=== PATIENT | female | born 1975 | race Caucasian/White ===

== ENCOUNTER 2016-10-14 20:12 | Emergency (ER) | payer MEDICAID ==
[~2016-10-14] VITALS: Ht 160 cm; Wt 78.2 kg
[~2016-10-14 20:12] MED LIST: PREN-43 PO; PREN1TAB17 PO; PREN1TAB62 PO
[2016-10-14 20:18] VITALS: Ht 160 cm; Wt 78.2 kg
[2016-10-14] MEDS ORDERED: ACET500C5 PO (20:48)
--- NOTE | 2016-10-14 20:56 | ERD ---
ER Documentation Chief Complaint Date/Time DATE: 10/14/16 TIME: 20:53 Chief Complaint cough x 4 days HPI 41-year-old female with no significant past medical history presents the ED complaining of a cough for 1 week. Reports that she has tactile fevers at home but denies taking her temperature. States that she has been taking a cough medication called Tuko and has been taking Tylenol for the reported fevers. Denies any abdominal pain, nausea, vomiting, diarrhea, rashes, chest pain, pleuritic chest pain, dyspnea on exertion. Patient reports that her son is also sick with similar symptoms. Denies any recent traveling. Denies any leg swelling. ROS All systems reviewed and are negative except as per history of present illness. Medications Home Meds Active Scripts Acetaminophen* (Tylophen*) 500 Mg Capsule, 1 CAP PO Q6H Y for PAIN AND OR ELEVATED TEMP, #20 CAP Prov:GERRY ALFARO PA-C 10/14/16 Reported Medications Vit-Iron Fumarate-FA ( Tablet) 1 Each Tablet, 1 TAB PO AM, TAB 07/15/14 Vit-Iron Fumarate-FA ( Vitamin Tablet) 1 Each Tablet, 1 TAB PO AM, TAB 07/01/14 #48/Iron Cb&Glu/Fa/B6 (CITRANATAL B-CALM COMBO PACK) 1 Each Tablet.seq , 1 EACH PO DAILY 01/13/14 Allergies Allergies: Coded Allergies: No Known Allergy (Unverified , 07/15/14) PMhx/Soc Anesthesia Reaction: No Hx Neurological Disorder: No Hx Respiratory Disorders: No Hx Cardiac Disorders: No Hx Psychiatric Problems: No Hx Miscellaneous Medical Probl: No Hx Alcohol Use: No Hx Substance Use: No Hx Tobacco Use: No Physical Exam Vitals Vital Signs Date Time Temp Pulse Resp B/P Pulse Ox O2 Delivery O2 Flow Rate FiO2 10/14/16 20:18 97.7 63 20 130/94 98 Physical Exam Const: Rni-dzt-tgnotlbqv, well-nourished. In no acute distress. Head: Atraumatic, normocephalic Eyes: Normal Conjunctiva without injection. No purulent discharge. PERRL. EOMI ENT: Normal external ear. Ear canal without erythema. Tympanic membrane pearly ramirez without effusion or bulging. Nasal canal clear with normal turbinates. Moist oropharynx without tonsillar exudates. Non-erythematous pharynx. Uvula midline. No drooling. No trismus. Neck: Full range of motion. No meningismus. No cervical lymphadenopathy. Resp: Clear to auscultation bilaterally. No wheezing, rhonchi, rales, or crackles. No accessory muscle use. No retractions. Cardio: Regular rate and rhythm. No murmurs, rubs or gallops. Abd: Soft, non tender, non distended. Normal bowel sounds. No palpable masses. No rebound tenderness. No guarding. Skin: No petechiae or rashes Back: No midline tenderness. No CVA tenderness. Ext: No cyanosis, or edema. Neur: Awake and alert. Psych: Normal Mood and Affect Procedures/MDM This is a 41-year-old female with no significant past medical history presents the ED complaining of a cough that started 1 week ago. Patient is afebrile and nontoxic-appearing. Patient has normal vital signs. This patient presents to the ED with symptoms consistent with bronchitis. Patient is appropriate for outpatient management. Patient is afebrile and has normal vital signs. Patient 's physical exam include lungs which were clear to auscultation and a normal pulse oximetry. There is a low suspicion for pneumonia, pneumothorax, pulmonary embolism, epiglottitis, otitis media, otitis externa, viral/strep pharyngitis, sinusitis, peritonsillar abscess, mastoiditis, retropharyngeal abscess, meningitis, sepsis, acute abdomen or other emergent conditions. Fluids, rest, and symptomatic treatment are recommended for the management of patient's symptoms. Discharge medications: Tylenol Patient was instructed to return to the ED for any new or worsening symptoms. They should otherwise follow up with the primary care provider within 1-2 days. The patient's questions were answered at the time of discharge. Patient understood and agreed with discharge management. Departure Diagnosis: Primary Impression: Cough Condition: Stable Patient Instructions: Bronchitis, Antiobiotic Treatment (Adult) [facility] Usted se glez hecho un examen mdico de control que le indica que no est en juni condicin que requiera tratamiento urgente en el Departamento de Emergencia. Un estudio ms profundo y el tratamiento de quezada condicin pueden esperar sin ningn riesgo hasta que usted sea atendida/o en el consultorio de quezada mdico o juni cl omar. Es responsabilidad suya arreglar juni beto para el seguimiento del bari. MANEJO DE CONDICIONES NO URGENTES EN EL FUTURO 1) Si usted tiene un mdico de atencin primaria: Usted debera llamar a quezada mdico de atencin primaria antes de venir al departamento de emergencia. Despus de las horas de consultorio, quezada doctor o quezada asociado/a est disponible por telfono. El mdico o enfermero de naomi en el servicio telefnico puede asesorarle por angie medio para atender el problema, o bari contrario se puede programar juni beto. 2) Si usted no tiene un mdico de atencin primaria: Llame al mdico o clnica de referencia que aparece abajo arnold las horas de consultorio para hacer juni beto para que le vean. CLINICAS: [facility] [phone] [address] [facility]., [facility] [phone] [address] [facility]. [facility] [phone] 2[address] [facility]. [place] [id number] [phone] [facility]. [place] [address] [phone] [facility]. [phone] [facility]. [facility] () Usted se glez hecho un examen mdico de control que le indica que no est en juni condicin que requiera tratamiento urgente en el Departamento de Emergencia. Un estudio ms profundo y el tratamiento de quezada condicin pueden esperar sin ningn riesgo hasta que usted sea atendida/o en el consultorio de quezada mdico o juni cl omar. Es responsabilidad suya arreglar juni beto para el seguimiento del bari. MANEJO DE CONDICIONES NO URGENTES EN EL FUTURO 1) Si usted tiene un mdico de atencin primaria: Usted debera llamar a quezada mdico de atencin primaria antes de venir al departamento de emergencia. Despus de las horas de consultorio, quezada doctor o quezada asociado/a est disponible por telfono. El mdico o enfermero de naomi en el servicio telefnico puede asesorarle por angie medio para atender el problema, o bari contrario se puede programar juni beto. 2) Si usted no tiene un mdico de atencin primaria: Llame al mdico o condado institucions de referencia que aparece abajo arnold las horas de consultorio para hacer juni beto para que le vean. SI USTED NO PUEDE PAGAR PARA PROSPER UN MEDICO puede ir a: [facility] [address] [place], [place] [id number] [place] [address] [address] [place] [address] [facility] [address] [place] [address] [facility] [address] [place], [place] [id number] Additional Instructions: Visite a quezada mdico maana para un EXAMEN.Regrese a estas instalaciones si no se mejora chasity esperbamos o chasity le dijimos. GERRY ALFARO PA-C Oct 14, 2016 20:56
[2016-10-14] MEDS ORDERED: GUAI-637 PO (21:03)
[2016-10-14] MEDS ORDERED: AZIT250T94 PO (21:03)
== END 2016-10-14 20:48 | disposition home or self-care (01) ==
LOC: E/R 20:12
DX: R05 Cough (principal)
CPT/HCPCS: 99283

== ENCOUNTER 2018-08-26 20:25 | Emergency (ER) | payer MEDICAID ==
[~2018-08-26] VITALS: Ht 160 cm; Wt 83.0 kg
[~2018-08-26 20:25] MED LIST changes: +ACET500C5 PO; +AZIT250T PO; +GUAI-637 PO
[2018-08-26 21:02] VITALS: BP 125/79; PULSE 80; RESP 18; Ht 160 cm; Wt 83.0 kg
[2018-08-26] MEDS ORDERED: D-ME118S24 PO (23:06)
[2018-08-26] MEDS ORDERED: AMOX500T PO (23:06)
--- NOTE | 2018-08-27 03:26 | ERD ---
ER Documentation Chief Complaint Chief Complaint flu-liked symptoms (cough&congestion) x 2weeks ROS All systems reviewed and are negative except as per history of present illness. Medications Home Meds Active Scripts D-Methorphan Hb/P-Epd HCl/Bpm (Dzhmkcyxta-Zgtxpgssequ-Yv Syr) 118 Ml Syrup, 5 ML PO Q4H for cough, #1 BOTTLE Prov:SHELLEY DAVIDSON DO 08/26/18 Amoxicillin Trihydrate (Amoxicillin) 500 Mg Tablet, 500 MG PO Q8 for sinusitis for 7 Days, #21 TAB Prov:SHELLEY DAVIDSON DO 08/26/18 Guaifenesin (Guaifenesin) 100 Mg/5 Ml Liquid, 200 MG PO Q6H PRN for COUGH, #120 ML Prov:GERRY ALFARO PA-C 10/14/16 Azithromycin* (Zithromax*) 250 Mg Tablet, 250 MG PO .ZPACK DIRECTED, #6 TAB TAKE 500 MG (2 TABS) THE FIRST DAY THEN 250 MG (1 TAB) DAYS 2-5 Prov:GERRY ALFARO PA-C 10/14/16 Acetaminophen* (Tylophen*) 500 Mg Capsule, 1 CAP PO Q6H PRN for PAIN AND OR ELEVATED TEMP, #20 CAP Prov:GERRY ALFARO PA-C 10/14/16 Reported Medications Vit-Iron Fumarate-FA ( Tablet) 1 Each Tablet, 1 TAB PO AM, TAB 07/15/14 Vit-Iron Fumarate-FA ( Vitamin Tablet) 1 Each Tablet, 1 TAB PO AM, TAB 07/01/14 #48/Iron Cb&Glu/Fa/B6 (CITRANATAL B-CALM COMBO PACK) 1 Each Tablet.seq, 1 EACH PO DAILY 01/13/14 Allergies Allergies: Coded Allergies: No Known Allergy (Unverified , 07/15/14) PMhx/Soc Medical and Surgical Hx: pt denies Medical Hx Anesthesia Reaction: No Hx Neurological Disorder: No Hx Respiratory Disorders: No Hx Cardiac Disorders: No Hx Psychiatric Problems: No Hx Miscellaneous Medical Probl: No Hx Alcohol Use: No Hx Substance Use: No Hx Tobacco Use: No Physical Exam Vitals Vital Signs Date Temp Pulse Resp B/P (MAP) Pulse Ox O2 O2 Flow FiO2 Time Delivery Rate 08/26/18 98.1 80 18 125/79 96 21:02 (94) Physical Exam Const: No acute distress Head: Atraumatic Eyes: Normal Conjunctiva ENT: Normal External Ears, Nose and Mouth. Neck: Full range of motion. No meningismus. Resp: Clear to auscultation bilaterally Cardio: Regular rate and rhythm, no murmurs Abd: Soft, non tender, non distended. Normal bowel sounds Skin: No petechiae or rashes Back: No midline or flank tenderness Ext: No cyanosis, or edema Neur: Awake and alert Psych: Normal Mood and Affect Departure Diagnosis: Primary Impression: Sinusitis Condition: Fair Patient Instructions: Sinusitis, Abx Tx Referrals: [facility], [facility] YOU HAVE RECEIVED A MEDICAL SCREENING EXAM AND THE RESULTS INDICATE THAT YOU DO NOT HAVE A CONDITION THAT REQUIRES URGENT TREATMENT IN THE EMERGENCY DEPARTMENT. FURTHER EVALUATION AND TREATMENT OF YOUR CONDITION CAN WAIT UNTIL YOU ARE SEEN IN YOUR DOCTORS OFFICE WITHIN THE NEXT 1-2 DAYS. IT IS YOUR RESPONSIBILITY TO MAKE AN APPOINTMENT FOR FOLOW-UP CARE. IF YOU HAVE A PRIMARY DOCTOR --you should call your primary doctor and schedule an appointment IF YOU DO NOT HAVE A PRIMARY DOCTOR YOU CAN CALL OUR PHYSICIAN REFERRAL HOTLINE AT IF YOU CAN NOT AFFORD TO SEE A PHYSICIAN YOU CAN CHOSE FROM THE FOLLOWING [facility] [address] [facility]. [facility] [address] [facility] [address] [facility] [address] [facility]. [facility] [address] [facility]. [facility]. [address] Additional Instructions: Llame al doctor MAANA y sharita juni STEFFANIE PARA DENTRO DE 1-2 AJ.Dgale a la secretaria que nosotros le instruimos hacer esta steffanie.Avise o llame si quezada condicin se empeora antes de la steffanie. Regresa aqui si peor o no mejor. SHELLEY DAVIDSON DO Aug 27, 2018 03:26
== END 2018-08-26 23:27 | disposition home or self-care (01) ==
LOC: FTE 20:25
DX: J32.9 Chronic sinusitis, unspecified (principal)
CPT/HCPCS: 99283